=== PATIENT | male | born 1965 | race Two or more races ===

== ENCOUNTER 2024-09-23 11:45 | Emergency (ER) | payer BC, OTHER ==
[~2024-09-23] VITALS: Ht 177.8 cm; Wt 90.9 kg
[2024-09-23 14:05] VITALS: BP 144/110; PULSE 70; RESP 16; TEMP 97.8; O2SAT 94
--- NOTE | 2024-09-23 14:17 | ED.PDOC ---
[place]. trauma (HPI) HPI Comments 58-year-old male patient presents to the clinic for pain the left side of face. Patient reports that 4 days ago he was hit with a metal pole of the face. Patient was at a construction site and a pull flew up and hit him on his head and face. Patient denies any LOC. Patient denied any dizziness. Patient denies any nausea or vomiting. Patient denies any blurred vision. Chief Complaint: Face pain Time Seen by MD: 13:30 Primary Care Provider: workers comp Reviewed notes: Nurses Notes, Medications, Allergies Allergies: Coded Allergies: NO KNOWN ALLERGIES (Unverified , 09/23/24) Home Meds Active Scripts Ibuprofen (Ibuprofen) 800 Mg Tab, 1 TAB PO TID for 10 Days, #30 TAB 0 Refills Prov:CELIA LE [facility] 09/23/24 Hydrocodone-Acetaminophen (Hydrocodone Bitartrate/AC 5-325 mg) 1 Tab Tab, 1 TAB PO Q8HPRN PRN for 2 Days, #6 TAB 0 Refills Prov:ALEXANDRE LEE [facility] 09/23/24 Information Source: Patient Mode of Arrival: Ambulatory Family History Family History: Reviewed,noncontributory to illness Constitutional: denies: chills, diaphoresis, fatigue, fever, malaise, sweats, weakness, others EENTM: reports: eye pain, others (Left-sided facial pain,) Respiratory: denies: cough, hemoptysis, orthopnea, SOB at rest, shortness of breath, SOB with excertion, stridor, wheezing, others Cardiovascular: denies: chest pain, dizzy spells, diaphoresis, Dyspnea on exertion, edema, irregular heart beat, left arm pain, lightheadedness, palpitations, PND, syncope, others Gastrointestinal: denies: abdomen distended, abdominal pain, blood streaked bowels, constipated, diarrhea, dysphagia, difficulty swallowing, hematemesis, melena, nausea, poor appetite, poor fluid intake, rectal bleeding, rectal pain, vomiting, others Genitourinary: denies: burning, dysuria, flank pain, frequency, hematuria, incontinence, penile discharge, penile sore, pain, testicle pain, testicle swelling, urgency, others Neurological: reports: headache Musculoskeletal: reports: neck pain (Left lateral neck pain) Integumetry: denies: bruises, change in color, change in hair/nails, dryness, laceration, lesions, lumps, rash, wounds, others Allergic/Immunocompromised: denies: Difficulty Healing, Frequent Infections, Hives, Itching, others Hematologic/Lymphatic: denies: anemia, blood clots, easy bleeding, easy bruising, swollen glands, others Endocrine: denies: excessive hunger, excessive sweating, excessive thirst, excessive urination, flushing, intolerance to cold, intolerance to heat, unexplained weight gain, unexplained weight loss, others Psychiatric: denies: anxiety, bipolar disorder, depression, hopeless, panic disorder, schizophrenia, sleepless, suicidal, others All Other Systems: Reviewed and Negative Physical Exam General Appearance: No Apparent Distress, Normal HEENT: Eye Lid (L) (Ecchymosis noted to the left lower lid), Photophobia, TMs Normal, Other (Tenderness to zygomatic process) Neck: Tender Lateral (Left lateral tenderness with palpation) Respiratory: Chest Non-Tender, Lungs Clear, No Accessory Muscle Use, No Respiratory Distress, Normal Breath Sounds Cardiovascular: No Edema, No JVD, No Murmur, No Gallop, Normal Peripheral Pulses, Regular Rate/Rhythm Breast Exam: Deferred Gastrointestinal: No Organomegaly, Non Tender, No Pulsatile Mass, Normal Bowel Sounds, Soft Genitalia: Deferred Pelvic: Deferred Rectal: Deferred Extremities: No calf tenderness, Normal capillary refill, Normal inspection, Normal range of motion, Non-tender, No pedal edema Neurologic: Alert, drying can worker II-XII nml as Tested, No Motor Deficits, Normal Affect, Normal Mood, No Sensory Deficits Cerebellar Function: Normal Reflexes: Normal Skin: Dry, Normal Color, Warm Lymphatic: No Adenopathy Was a procedure done? Was a procedure done?: No Differential Diagnosis Multiple Trauma: Fractures, Abrasions, Contusion Neck Injury: Cervical Muscle Spasm, Cervical Sprain, Cervical Strain X-Ray, Labs, Meds, VS Vital Signs Date Time Temp Pulse Resp B/P (MAP) Pulse Ox O2 Delivery O2 Flow Rate FiO2 09/23/24 14:05 70 16 94 Room Air* 0 21 09/23/24 14:05 97.8 70 16 144/110 (121) 94 97.8 09/23/24 12:06 98.0 75 18 143/84 (103) 95 Current Medications Medications (Trade) Dose Ordered Sig/Roderick Route Start Time Stop Time Status Last Admin Acetaminophen/ Hydrocodone Bitart ([place] 7.5/325MG Tab) 1 tab ONCE ONCE PO 09/23/24 14:15 09/23/24 14:22 DC 09/23/24 14:29 PATIENT: JEVON NEGROT: [id number]: [id number] : 1965 LOC: ER ROOM / BED: / AGE / SEX: 58 / M ADM STATUS: REG ER SERVICE [id number] ORDERING PHYSICIAN: CELIA LE PROCEDURE(s): FAC2C - MAXILLOFACIAL WITHOUT REASON: facial trauma with bruising ORDER NUMBER(s): [id number], ACCESSION NUMBER(s): [id number] HISTORY: facial trauma with bruising TECHNIQUE: Nonenhanced axial images through the facial bones with coronal and sagittal MPR. Radiation Dose Information: CT Dose: CTDI volume is 66.95 mGy. Dose-length product is 1547.4 mGy*cm FINDINGS: Mandible: No fracture Maxilla: No augustine Pterygoid plates: No fracture Zygomatic processes: No fracture. Zygomatic arches: No fractures Orbits: No fracture Sinuses: Intact Facial swelling: No drainable fluid collection IMPRESSION: 1. No acute facial fractures. Radiation optimization: All CT scans at this facility use at least one of these dose optimization techniques: automated exposure control mA and/or kV adjustment per patient size (includes targeted exams where dose is matched to clinical indication) or iterative reconstruction. ATED BY: JOSE RAFAEL LU Jr., DO DICTATED DATE/TIME: 09/23/241448 SIGNED BY: JOSE RAFAEL LU Jr., SIGNED DATE/TIME: 09/23/241448 CC: X-Ray, Labs, Meds, VS Comment CT maxillofacial ordered. [place] 7.5 mg given to patient due to ibuprofen not relieving pain. On re-evaluation patient has symptomatic improvement. Patient is stable for discharge at this time. All test results and diagnostic imaging have been interpreted. All diagnostic findings, discharge care, and education instruction provided to the patient. Follow-up with PCP in 2-3 days. Patient to follow up with workmen's comp for continued treatment Patient verbalized understanding, discharge instructions and agrees to treatment plan Vital signs are stable Patient is ambulatory Patient advised of which symptoms necessitate a return visit to the emergency room. Patient to return emergency room for any new worsening symptoms. Patient is aware that the purpose of this visit is for an acute medical emergency requiring emergent stabilization. Chronic conditions, including malignancies have not been ruled out. Patient is instructed to follow up with PCP as directed for continued care and workup. If unable to arrange follow up, patient is to return to the emergency room for reassessment. Patient was given verbal and written discharge instructions and acknowledges understanding Time of 1ST Reevaluation: 15:06 Reevaluation 1ST: Improved Patient Education/Counseling: Diagnosis, Treatment, Prognosis, Need For Follow Up Family Education/Counseling: Diagnosis, Treatment, Prognosis, Need For Follow Up Departure 1 Departure Time of Disposition: 15:07 Impression: Primary Impression: Left eye injury Qualified Codes: S05.92XA - Unspecified injury of left eye and orbit, initial encounter Additional Impression: Ecchymosis of eye Disposition: 01 HOME / SELF CARE / HOMELESS Condition: Stable e-Prescriptions Ibuprofen (Ibuprofen) 800 Mg Tab 1 TAB PO TID for 10 Days, #30 TAB 0 Refills Prov: CELIA LE [facility] 09/23/24 Hydrocodone-Acetaminophen (Hydrocodone Bitartrate/AC 5-325 mg) 1 Tab Tab 1 TAB PO Q8HPRN PRN for 2 Days, #6 TAB 0 Refills Prov: REGIS LEANNE [facility] 09/23/24 Discharged With: Self, Spouse Critical Care Note Critical Care Time?: No Stability Stability form required: No Heart Score Heart Score: Heart Score Response (Comments) Value History N/A 0 EKG N/A 0 Age N/A 0 Risk Factors N/A 0 Troponin N/A 0 Total 0 CELIA LE [facility] Sep 23, 2024 14:17
[2024-09-23] MEDS: HYDROcodone-ACET 7.5/325MG TAB PO ONE (14:29)
--- NOTE | 2024-09-23 14:52 | DVH ---
HISTORY: facial trauma with bruising TECHNIQUE: Nonenhanced axial images through the facial bones with coronal and sagittal MPR. Radiation Dose Information: CT Dose: CTDI volume is 66.95 mGy. Dose-length product is 1547.4 mGy*cm FINDINGS: Mandible: No fracture Maxilla: No augustine Pterygoid plates: No fracture Zygomatic processes: No fracture. Zygomatic arches: No fractures Orbits: No fracture Sinuses: Intact Facial swelling: No drainable fluid collection IMPRESSION: 1. No acute facial fractures. Radiation optimization: All CT scans at this facility use at least one of these dose optimization shaun hniques: automated exposure control mA and/or kV adjustment per patient size (includes targeted exam s where dose is matched to clinical indication) or iterative reconstruction.
[2024-09-23] MEDS ORDERED: HYDR-4902 PO (15:21)
[2024-09-23] MEDS ORDERED: IBUP-1456 PO (15:21)
== END 2024-09-23 15:50 | disposition home or self-care (01) ==
LOC: ER 11:45
DX: S05.12XA Contusion of eyeball and orbital tissues, left eye, initial encounter (principal); W22.8XXA Striking against or struck by other objects, initial encounter; Y93.89 Activity, other specified; Y92.89 Other specified places as the place of occurrence of the external cause; Y99.8 Other external cause status
CPT/HCPCS: 70486